=== PATIENT | male | born 1990 | race Caucasian/White ===

== ENCOUNTER → 2019-05-14 | Outpatient (CLI) | payer BC ==
[~2019-05-14] MED LIST: CEPH500C PO; INSULIN PUMP
--- NOTE | 2019-05-14 12:28 | Diagnostic Imaging Report ---
PROCEDURE: US Gallbladder. TECHNIQUE: Multiple real-time grayscale images were obtained over the right upper quadrant in various projections. INDICATION: Right upper quadrant pain. FINDINGS: The liver is normal in size and without focal lesions. There is no biliary ductal dilatation. Common bile duct measures less than 4 mm. There is some gallbladder sludge. There is no cholelithiasis, gallbladder wall thickening, or pericholecystic fluid. The pancreas is obscured by bowel gas. The right kidney is normal. There is no ascites. IMPRESSION: Gallbladder sludge, otherwise unremarkable right upper quadrant ultrasound. Dictated by: Dictated on workstation # [id number]
== END ==
LOC: RAD 08:10
PROVIDERS: ATTEND Nurse Practitioner Family
DX: K82.8 Other specified diseases of gallbladder (principal)
CPT/HCPCS: 76705

== ENCOUNTER 2019-05-29 05:38 | Outpatient (CLI) | payer BC ==
[~2019-05-29] VITALS: Ht 175 cm; Wt 95.4 kg
[2019-05-29] MEDS ORDERED: METF-397 PO (11:29)
[2019-05-31] MEDS ORDERED: ACHD5005 PO (12:26)
[2019-05-31] MEDS ORDERED: DOCU-143 PO (12:26)
== END 2019-05-29 11:43 | disposition home or self-care (01) ==
LOC: PREOP 05:38
PROVIDERS: ATTEND Surgery
DX: Z01.818 Encounter for other preprocedural examination (principal)

== ENCOUNTER 2019-05-31 10:01 | Day surgery (SDC) | payer BC ==
[2019-05-31] VITALS (10 sets, daily range): BP systolic 114–136; BP diastolic 8–90
[~2019-05-31] VITALS: Ht 175 cm; Wt 95.4 kg
[~2019-05-31 10:01] MED LIST changes: +METF-397 PO
[2019-05-31] MEDS ORDERED: LACTATED RINGERS 1,000 ML IV PRN ×2 (10:34)
[2019-05-31] MEDS ORDERED: ceFAZolin INJECTION 1,000 MG in WATER (STERILE) FOR INJECTION 10 ML IV ONE (10:45)
--- NOTE | 2019-05-31 10:55 | Progress Note-Pre Operative ---
Pre-Operative Progress Note H&P Reviewed The H&P was reviewed, patient examined and no changes noted. Date Seen by Provider: May 31, 2019 Time Seen by Provider: 10:54 Date H&P Reviewed: May 31, 2019 Time H&P Reviewed: 10:54 Pre-Operative Diagnosis: EPIGASTRIC ABD PAIN, ABNORMAL U/S JEMIMA ALVA DO May 31, 2019 10:55 POS
[2019-05-31 10:56] LABS: BASOPHILS % (AUTO) 0 % (0-10); EOSINOPHILS # (AUTO) 0.3 10^3/uL (0.0-0.3); EOSINOPHILS % (AUTO) 2 % (0-10); HEMATOCRIT 44 % (40-54); LYMPHOCYTES % (AUTO) 18 % (12-44); MEAN CORPUSCULAR HEMOGLOBIN 32 PG (25-34); MEAN CORPUSCULAR HGB CONC 34 G/DL (32-36); MEAN CORPUSCULAR VOLUME 93 FL (80-99); MEAN PLATELET VOLUME 11.2 FL (7.4-10.4); MONOCYTES # (AUTO) 0.8 X 10^3 (0.0-1.0); MONOCYTES % (AUTO) 7 % (0-12); NEUTROPHILS # (AUTO) 8.4 X 10^3 (1.8-7.8); NEUTROPHILS % (AUTO) 73 % (42-75); PLATELET COUNT 238 10^3/uL (130-400); RED CELL DISTRIBUTION WIDTH 12.4 % (10.0-14.5); WHITE BLOOD COUNT 11.4 10^3/uL (4.3-11.0)
[2019-05-31] MEDS ORDERED: proPOfol 200 MG/20 ML (DIPRIVAN) VIAL IV ONE (11:13)
[2019-05-31] MEDS ORDERED: LIDOCAINE PF 2% 5 ML (XYLOCAINE) VIAL ONE (11:13)
[2019-05-31] MEDS ORDERED: ONDANSETRON 4 MG/2 ML (SDV) Z0FRAN ONE (11:13)
[2019-05-31] MEDS ORDERED: DEXAMETHASONE 10 MG/ML (DECADRON) 1 ML VIAL ONE (11:13)
[2019-05-31] MEDS ORDERED: SEVOFLURANE (ULTANE) 15 ML INHAL SOLN ONE ×3 (11:13→12:26)
[2019-05-31] MEDS ORDERED: ROCURONIUM 10 MG/ML 5 ML SYRINGE IV ONE (11:13)
[2019-05-31] MEDS ORDERED: MIDAZOLAM 2 MG/2 ML (VERSED) VIAL ONE (11:14)
[2019-05-31] MEDS ORDERED: fentaNYL INJECTION 100 MCG/2 ML AMP ONE ×2 (11:14→12:04)
[2019-05-31] MEDS ORDERED: IOPAMIDOL 61% 30 ML (ISOVUE 300) VIAL IV ONE (11:23)
[2019-05-31] MEDS ORDERED: BUP/EPI 0.5% 1:200,000 (MARCAINE) 10ML VIAL IJ ONE (11:23)
--- NOTE | 2019-05-31 12:25 | Progress Note-Post Operative ---
Post-Operative Progess Note Surgeon (s)/Energy Efficiency Finance Manager (s) Surgeon JEMIMA ALVA DO Energy Efficiency Finance Manager: Dr. Robertson Pre-Operative Diagnosis EPIGASTRIC ABD PAIN, ABNORMAL U/S Post-Operative Diagnosis same Procedure & Operative Findings Date of Procedure 05/31/19 Procedure Performed/Findings lap berry c ioc Anesthesia Type gen Estimated Blood Loss Estimated blood loss (mL): min Specimens/Packing Specimens Removed gallbladder JEMIMA ALVA DO May 31, 2019 12:25 POS
[2019-05-31] MEDS ORDERED: ACHD5005 PO (12:26)
[2019-05-31] MEDS ORDERED: DOCU-143 PO (12:26)
[2019-05-31] MEDS ORDERED: KETOROLAC 30 MG/ML VIAL ONE (12:26)
--- NOTE | 2019-05-31 12:27 | Discharge Inst-Simple/Standard ---
Discharge Inst-Standard Discharge Medications New, Converted or Re-Newed RX: RX on Chart Patient Instructions/Follow Up Plan of Care/Instructions/FU: 2 weeks Mario Activity as Tolerated: No Discharge Diet: Regular Diet Other Inst to Patient Follow up Appt: Make appointment for 2 weeks. Instructions: No lifting greater than 10 pounds. No strenuous activity. May shower in 24 hours, no tub bath or soaking. Use incentive spirometer at home as directed. No Smoking Skin/Wound Care: You have glue over incisions it will fall off on its own. Symptoms to Report: Appetite Changes, Extremity Discoloration, Numbness/Tingling, Swelling Increased, Bleeding Excessive, Eyesight Changes, Pain Increased, Urine Color Change, Constipation(Persistent), Fever over 101 degree F, Pain/Pressure in chest, Urinating Difficulty, Cough Up/Vomit Blood, Heart Beat Irreg/Pounding, Pain/Pressure in jaw, Vaginal Bleeding Increase, Cramps in feet or legs, Lightheadedness, Pain/Pressure in shoulder, Diarrhea(Persistent), Memory Changes Suddenly, Questions/Concerns, Weight gain consecutive days, Dizziness/Fainting, Nausea/Vomiting, Shortness of Breath, Weight gain over 2 pounds. If eyes or skin turn yellow notify physician. If questions or concerns contact your physician Or seek help at emergency department. JEMIMA ALVA DO May 31, 2019 12:27 POS
[2019-05-31] MEDS ORDERED: morphine INJ 10 MG/ML 1ML (SYR OR VIAL) IVP ONE (13:00)
[2019-05-31] MEDS ORDERED: ONDANSETRON 4 MG/2 ML (SDV) Z0FRAN IVP PRN (13:00)
--- NOTE | 2019-05-31 13:42 | Anesthesia-General Post-Op ---
General Patient Condition Mental Status/LOC: Same as Preop Cardiovascular: Satisfactory Nausea/Vomiting: Absent Respiratory: Satisfactory Pain: Controlled Complications: Absent Post Op Complications Complications None Follow Up Care/Instructions Patient Instructions None needed. Anesthesia/Patient Condition Patient Condition Patient is doing well, no complaints, stable vital signs, no apparent adverse anesthesia problems. No complications reported per nursing. JAIR PENNINGTON CRNA May 31, 2019 13:42 POS
--- NOTE | 2019-05-31 14:22 | Diagnostic Imaging Report ---
INDICATION: Gallbladder sludge. Patient undergoing cholecystectomy. Fluoroscopy was provided in the OR during intraoperative cholangiogram. 6 seconds of fluoroscopic time was utilized. Images demonstrate contrast being injected via the cystic duct remnant. Intrahepatic and extrahepatic bile ducts are normal caliber. There is no filling defect. Contrast passes into the duodenum. IMPRESSION: Fluoroscopy for intraoperative cholangiogram. Dictated by: Dictated on workstation # [id number]
--- NOTE | 2019-05-31 22:36 | OPERATIVE REPORT ---
DATE OF SERVICE: 05/31/2019 PREOPERATIVE DIAGNOSES: Epigastric abdominal pain and abnormal gallbladder ultrasound. POSTOPERATIVE DIAGNOSES: Epigastric abdominal pain and abnormal gallbladder ultrasound. PROCEDURE: Laparoscopic cholecystectomy with intraoperative cholangiogram. SURGEON: Jemima Martin DO WINDING LATHE OPERATOR: Dr. Robertson, assisted in retraction, dissection and closure. ANESTHESIA: General. ESTIMATED BLOOD LOSS: Minimal. COMPLICATIONS: None. INDICATIONS: The patient is a 28-year-old male with epigastric abdominal pain and gallbladder ultrasound demonstrating sludge. He understands risks and benefits of procedure and wished to proceed with procedure. Consent was signed in the chart. DESCRIPTION OF PROCEDURE: The patient was taken to the operating suite, was prepped and draped in sterile fashion. Surgical pause was performed. Local anesthetic was infiltrated just above the umbilicus. An 11 blade scalpel was used to make a skin incision. Cautery was used to dissect down the fascia, which was then scored, elevated and grasped and 0 Vicryl was placed in a [id number] fashion for closure at the end of the case. Balloon trocar was inserted and pneumoperitoneum was achieved. Under direct visualization of the laparoscope, a 5 mm trocar was placed in the subxiphoid region and two 5 mm trocars in the right upper quadrant. Gallbladder was grasped, elevated. Some adhesions to the gallbladder, which were then taken down bluntly. The cystic duct and cystic artery were then dissected out. Clips were placed on the proximal and distal portion of the cystic artery and the distal portion of the cystic duct. The duct was then partially transected. Arrow catheter was inserted and cholangiogram was performed. There were no filling defects. Contrast made its way into the duodenum without difficulty. Catheter was then removed. Clips were placed on the proximal portion of the cystic duct, was then transected along with the artery. Hook cautery was used to dissect the gallbladder the gallbladder fossa achieving hemostasis. Once removed, it was placed in an Endobag and removed through 12 mm trocar site. The abdomen was then irrigated and suctioned. No other pathology noted. The trocars were removed. The abdomen was then desufflated. The 0 Vicryl placed at the beginning of the case was then tied closing the 12 mm fascial defect. The skin was then closed using 4-0 Monocryl in subcuticular fashion. The abdomen was then washed and dried and Skin Affix was placed over the incision. The patient tolerated procedure well without any complications and taken to recovery room in stable condition. Job ID: [id number] DocumentID: [id number] Dictated Date: 05/31/2019 19:37:23 Waiter/Waitress Economy Class Date: 05/31/2019 22:35:15 Dictated By: JEMIMA MARTIN DO
== END 2019-05-31 15:05 | disposition home or self-care (01) ==
LOC: SDC 10:01
PROVIDERS: ATTEND Surgery
DX: K81.1 Chronic cholecystitis (principal); Z11.2 Encounter for screening for other bacterial diseases; E11.9 Type 2 diabetes mellitus without complications; Z79.4 Long term (current) use of insulin; E66.9 Obesity, unspecified; Z68.31 Body mass index [BMI] 31.0-31.9, adult
CPT/HCPCS: 36415; 85025; 87081

== ENCOUNTER 2023-02-02 08:51 | Emergency (ER) | payer BC ==
[~2023-02-02] VITALS: Ht 175.2 cm; Wt 95.2 kg
[~2023-02-02 08:51] MED LIST changes: +ACHD5005 PO; +DOCU-143 PO; +PRD50T PO
[2023-02-02] MEDS ORDERED: NS IV 1000 ML 1,000 ML IV STA (10:44)
[2023-02-02] MEDS ORDERED: diphenhydrAMINE 50 MG/ML INJ (BENADRYL) IVP ONE (10:45)
[2023-02-02] MEDS ORDERED: methylPREDNISolone 40 MG/ML (Solu-MEDROL) VIAL IV ONE (10:45)
--- NOTE | 2023-02-02 10:48 | ED Integumentary General ---
General Chief Complaint: Skin/Wound Problems Stated Complaint: HIVES | Nursing Triage Note: pt arrived pov with cc of "hives" that start from his head and go down to his knees. pt was seen here on tuesday for similar issue. pt reports that the hives itch. Source: patient Exam Limitations: no limitations History of Present Illness Date Seen by Provider: Feb 02, 2023 Time Seen by Provider: 10:45 Initial Comments Patient is a 32-year-old male who presents ED for diffuse rash. Patient was seen here on Tuesday. Diagnosed with allergic reaction. Patient Was discha rged with Benadryl Pepcid and prednisone. Patient is unsure what he was exposed to. But was bitten by ticks. Patient finished mowing his lawn. No change in soaps or detergents or fragrances. Rash started in his upper extremities, back. Patient received steroids which did improve. States the rash started to get worse on Tuesday evening. Took a dose of prednisone Tuesday evening and Tuesday evening. Reports itching. Denies any difficulty swallowing, difficulty breathing. No history of similar symptoms in the past. Patient denies of any nausea, vomit, diarrhea, abdominal pain, dysuria, hematuria Allergies and Home Medications Allergies Coded Allergies: No Known Drug Allergies (Unverified , 05/29/19) Patient Home Medication List Home Medication List Reviewed: Yes Docusate Sodium (Colace) 100 Mg Capsule, 100 MG PO BID Prescribed by: JEMIMA ALVA on 05/31/19 1226 Epinephrine (Epipen) 0.3 Mg/0.3 Ml Auto.injct, 0.3 MG IJ NEEDED Prescribed by: KATEY LAROSE on 02/02/23 1258 Hydrocodone Bit/Acetaminophen (Lortab 5 Mg Tablet) 1 Tab Tab, 1-2 TAB PO Q6H PRN for PAIN-MODERATE Prescribed by: JEMIMA ALVA on 05/31/19 1226 Metformin HCl (Metformin HCl) 500 Mg Tablet, 1,000 MG PO DAILY, (Reported) Entered as Reported by: JORGE LEVIN on 05/29/19 1129 Prednisone (Prednisone) 50 Mg Tab, 50 MG PO DAILY Prescribed by: KATEY LAROSE on 01/30/23 1615 Prednisone (Prednisone) 10 Mg Tab.ds.pk, 10 MG PO DAILY Prescribed by: KATEY LAROSE on 02/02/23 1258 [Insulin Pump] , (Reported) Entered as Reported by: JANNET SABILLON on 07/01/09 1643 Review of Systems Review of Systems Constitutional: No chills, No diaphoresis, No malaise, No weakness EENTM: No hearing loss, No ear pain, No blurred vision Respiratory: No cough, No dyspnea on exertion Cardiovascular: No chest pain Gastrointestinal: No abdominal pain, No diarrhea, No nausea, No vomiting Genitourinary: No decreased output, No discharge Musculoskeletal: No back pain, No joint pain, No joint swelling; muscle pain Skin: No change in color, No change in hair/nails All Other Systems Reviewed Negative Unless Noted: Yes Past Jmuqbui-Lifauf-Pzqlcw Hx Patient Social History Tobacco Use?: No Substance use?: No Alcohol Use?: No Seasonal Allergies Seasonal Allergies: No Past Medical History Surgery/Hospitalization HX: DM Recent Vasectomy Surgeries: Yes (TOE, WISDOM TEETH) Respiratory: No Cardiac: No Neurological: No Sexually Transmitted Disease: No HIV/AIDS: No Genitourinary: No Gastrointestinal: Yes (ABD PAIN) Chronic Diarrhea, Gall Bladder Disease Musculoskeletal: No Endocrine: Yes (INSULIN PUMP, type 1) Diabetes, Insulin dep HEENT: Yes (GLASSES) Loss of Vision: Denies Hearing Impairment: Denies Cancer: No Psychosocial: No Integumentary: No Blood Disorders: No Adverse Reaction/Blood Tranf: No (N/A) Physical Exam Vital Signs Vital Signs - First Documented 02/02/23 09:36 Temp 37.7 Pulse 121 B/P (MAP) 107/72 (84) Pulse Ox 97 O2 Delivery Room Air Capillary Refill : General Appearance: WD/WN, no apparent distress HEENT: PERRL/EOMI, normal ENT inspection, TMs normal, pharynx normal Neck: non-tender Cardiovascular: regular rate, rhythm, no edema, no gallop, no JVD Respiratory: chest non-tender, lungs clear, normal breath sounds, no respiratory distress, no accessory muscle use Gastrointestinal: normal bowel sounds, non tender, soft, no organomegaly Back: normal inspection, no CVA tenderness Extremities: other (Diffuse erythematous edematous rash. Blanchable.) Skin: other (Diffuse erythematous edematous blanchable rash.) Lymphatic: no adenopathy Progress/Results/Core Measures Results/Orders Lab Results Laboratory Tests Test 02/02/23 10:13 Range/Units White Blood Count 12.4 H 4.3-11.0 10^3/uL Red Blood Count 4.23 L 4.30-5.52 10^6/uL Hemoglobin 13.6 13.3-17.7 g/dL Hematocrit 40 40-54 % Mean Corpuscular Volume 94 80-99 fL Mean Corpuscular Hemoglobin 32 25-34 pg Mean Corpuscular Hemoglobin Concent 34 32-36 g/dL Red Cell Distribution Width 12.5 10.0-14.5 % Platelet Count 271 130-400 10^3/uL Mean Platelet Volume 11.3 9.0-12.2 fL Immature Granulocyte % (Auto) 1 % Neutrophils (%) (Auto) 76 H 42-75 % Lymphocytes (%) (Auto) 18 12-44 % Monocytes (%) (Auto) 4 0-12 % Eosinophils (%) (Auto) 0 0-10 % Basophils (%) (Auto) 0 0-10 % Neutrophils # (Auto) 9.5 H 1.8-7.8 10^3/uL Lymphocytes # (Auto) 2.3 1.0-4.0 10^3/uL Monocytes # (Auto) 0.5 0.0-1.0 10^3/uL Eosinophils # (Auto) 0.0 0.0-0.3 10^3/uL Basophils # (Auto) 0.0 0.0-0.1 10^3/uL Immature Granulocyte # (Auto) 0.1 0.0-0.1 10^3/uL Erythrocyte Sedimentation Rate 8 0-15 MM/HR Sodium Level 137 135-145 MMOL/L Potassium Level 3.6 3.6-5.0 MMOL/L Chloride Level 104 98-107 MMOL/L Carbon Dioxide Level 22 21-32 MMOL/L Anion Gap 11 5-14 MMOL/L Blood Urea Nitrogen 16 7-18 MG/DL Creatinine 0.94 0.60-1.30 MG/DL Estimat Glomerular Filtration Rate 111 BUN/Creatinine Ratio 17 Glucose Level 275 H 70-105 MG/DL Calcium Level 8.5 8.5-10.1 MG/DL Corrected Calcium 8.8 8.5-10.1 MG/DL Total Bilirubin 0.7 0.1-1.0 MG/DL Aspartate Amino Transf (AST/SGOT) 12 5-34 U/L Alanine Aminotransferase (ALT/SGPT) 11 0-55 U/L Alkaline Phosphatase 78 40-136 U/L C-Reactive Protein High Sensitivity 2.15 H 0.00-0.50 MG/DL Total Protein 6.1 L 6.4-8.2 GM/DL Albumin 3.6 3.2-4.5 GM/DL Lipase 4 L 8-78 U/L My Orders Orders - KATLYN TRAN Methylprednisolone Sod Succ (Solu-Medrol (02/02/23 10:45) Diphenhydramine Injection (Benadryl Inje (02/02/23 10:45) Famotidine Injection (Pepcid Injection) (02/03/23 09:00) Cbc With Automated Diff (02/02/23 10:44) Comprehensive Metabolic Panel (02/02/23 10:44) Lipase (02/02/23 10:44) Hs C Reactive Protein (02/02/23 10:44) Erythrocyte Sedimentation Rate (02/02/23 10:44) Ns Iv 1000 Ml (Sodium Chloride 0.9%) (02/02/23 10:44) Epinephrine Adult Auto-Inject (Epipen (A (02/02/23 11:00) Famotidine Injection (Pepcid Injection) (02/02/23 11:10) Medications Given in ED Current Medications Medications Dose Ordered Sig/Sy Route Start Time Stop Time Status Last Admin Dose Admin Diphenhydramine HCl 25 mg ONCE ONCE IVP 02/02/23 10:45 02/02/23 10:46 DC 02/02/23 11:03 25 MG Epinephrine 0.3 mg ONCE ONCE IM 02/02/23 11:00 02/02/23 11:01 DC 02/02/23 11:03 0.3 MG Methylprednisolone Sodium Succinate 120 mg ONCE ONCE IV 02/02/23 10:45 02/02/23 10:46 DC 02/02/23 11:03 120 MG Vital Signs/I&O 02/02/23 02/02/23 09:36 13:13 Temp 37.7 Pulse 121 104 B/P (MAP) 107/72 (84) 130/74 Pulse Ox 97 97 O2 Delivery Room Air Room Air Blood Pressure Mean: 84 Departure Communication (PCP) Reviewed previous ER visits, H&P, lab testing. Patient was seen here January 30. Diagnosed with potential allergic reaction. Patient was discharged with prednisone, Benadryl and Pepcid which states he has been taking. Patient states it felt like the rash was improving and did not take 1 day worth of prednisone. Reports worsening rash itching. No difficulty breathing shortness of breath. On exam has a large diffuse welts. Oropharynx patent. No wheezing or stridor. Slightly tachycardic.. Low-grade temp at 37.7. Generalized lab work was ordered CBC, CMP, CRP and ESR. History of type 1 diabetes. Reports blood sugar well controlled. Denies being bitten by any ticks. States he was bitten by mosquito which seem to start the rash after mowing the grass Tuesday. Due to his current complaint and symptoms patient received 120 mg of Solu-Medrol, Benadryl and Pepcid. Did receive an EpiPen. Patient rash appears to be improving. His CBC 12.4. Blood sugar 275. CRP of 2.12. Normal ESR. Patient denies any change in soaps, fragrances. No change in food. No recent change in any type of medication. Unclear etiology of this rash but does appear to be a hypersensitivity type rash. No evidence suggesting infectious. No sloughing of the skin. No oral mucosal lesions. Since patient symptoms appear to be improving will discharge with a taper dose of prednisone. Continue with Benad ryl and Pepcid. Did provide a EpiPen. Suggest follow-up your primary care physician a few days for reevaluation. No evidence of angioedema. No difficulty breathing. Patient was observed for 4 hours during his stay before discharge. Improvement of his symptoms. Patient would likely benefit with allergy testing and further evaluation. If any worsening symptoms return back to ED for further evaluation such as shortness of breath, worsening rash Impression Primary Impression: Allergic reaction Disposition: 01 HOME, SELF-CARE Condition: Stable Departure-Patient Inst. Decision time for Depature: 12:56 Referrals: KATALINA MACKEY DO (PCP/Family) Primary Care Physician Patient Instructions: Allergic Reaction ED Scripts Epinephrine (Epipen) 0.3 Mg/0.3 Ml Auto.injct 0.3 MG IJ NEEDED, #1 ML Prov: KATLYN TRAN 02/02/23 Prednisone (Prednisone) 10 Mg Tab.ds.pk 10 MG PO DAILY, #21 EA Take 6 tabs(60mg)daily,decrease by 1 tab(10MG)daily. Prov: KATLYN TRAN 02/02/23 KATLYN TRAN Feb 02, 2023 10:48
[2023-02-02 10:52] LABS: BASOPHILS % (AUTO) 0 % (0-10); EOSINOPHILS % (AUTO) 0 % (0-10); HEMATOCRIT 40 % (40-54); HEMOGLOBIN 13.6 g/dL (13.3-17.7); LYMPHOCYTES # (AUTO) 2.3 10^3/uL (1.0-4.0); LYMPHOCYTES % (AUTO) 18 % (12-44); MEAN CORPUSCULAR HEMOGLOBIN 32 pg (25-34); MEAN CORPUSCULAR HGB CONC 34 g/dL (32-36); MEAN CORPUSCULAR VOLUME 94 fL (80-99); MEAN PLATELET VOLUME 11.3 fL (9.0-12.2); MONOCYTES # (AUTO) 0.5 10^3/uL (0.0-1.0); MONOCYTES % (AUTO) 4 % (0-12); NEUTROPHILS # (AUTO) 9.5 10^3/uL (1.8-7.8); NEUTROPHILS % (AUTO) 76 % (42-75); PLATELET COUNT 271 10^3/uL (130-400); WHITE BLOOD COUNT 12.4 10^3/uL (4.3-11.0)
[2023-02-02 11:00] LABS: ALBUMIN 3.6 GM/DL (3.2-4.5); POTASSIUM 3.6 MMOL/L (3.6-5.0)
[2023-02-02] MEDS ORDERED: EPINEPHrine (ADULT) 0.3 MG/0.3 ML auto-inject IM ONE (11:00)
[2023-02-02 11:01] LABS: CALCIUM 8.5 MG/DL (8.5-10.1)
[2023-02-02 11:03] LABS: TOTAL PROTEIN 6.1 GM/DL (6.4-8.2)
[2023-02-02 11:04] LABS: BILIRUBIN,TOTAL 0.7 MG/DL (0.1-1.0)
[2023-02-02 11:06] LABS: CREATININE SERUM 0.94 MG/DL (0.60-1.30)
[2023-02-02] MEDS ORDERED: FAMOTIDINE 20MG/2ML IV (PEPCID) ONE (11:10)
[2023-02-02 11:17] LABS: ERYTHROCYTE SEDIMENTATION RATE 8 MM/HR (0-15)
[2023-02-02] MEDS ORDERED: PRED10TA22 PO (12:58)
[2023-02-02] MEDS ORDERED: EPIN0.3P2 IJ (12:58)
[2023-02-02 13:13] VITALS: BP 130/74
[2023-02-03] MEDS ORDERED: FAMOTIDINE 20MG/2ML IV (PEPCID) IVP SCH (09:00)
== END 2023-02-02 13:17 | disposition home or self-care (01) ==
LOC: EDUNIT# 08:51 → ER 08:52
DX: T78.40XA Allergy, unspecified, initial encounter (principal); R00.0 Tachycardia, unspecified; E10.9 Type 1 diabetes mellitus without complications; Z96.41 Presence of insulin pump (external) (internal)
CPT/HCPCS: 36415; 80053; 83690; 85025; 85652; 86141